=== PATIENT | female | born 1985 | race American Indian/Alaskan Native ===

== ENCOUNTER 2018-05-26 20:53 | Inpatient (IN) | payer MEDICAID ==
--- NOTE | 2018-05-26 22:19 | Emergency Department Report ---
ED Headache HPI - General Chief Complaint: Headache Stated Complaint: HIGH BP/HEADACHE/BLURRED VISION Source: patient, RN notes reviewed - History of Present Illness Initial Comments: Patient 32-year-old female history of -induced hypertension -induced diabetes or headache 3 days worsening bilateral lower sternum and shortness of breath. Symptoms exacerbated by activity is relieved by nothing patient right shortness of breath or 4/10 BP max 189/94 pt not currently on BP meds, Timing/Duration: other Quality: moderate Head Injury Location: frontal Recent Head Trauma: other ( 1 week ) Associated Symptoms: fatigue, nasal congestion, other (bilat le edema , sob ) Allergies/Adverse Reactions: Allergies No Known Allergies Allergy (Unverified 05/26/18 22:03) ED Review of Systems ROS: Stated complaint: HIGH BP/HEADACHE/BLURRED VISION Other details as noted in HPI Constitutional: malaise. denies: chills, fever Eyes: vision change (blurred vision). denies: eye pain, eye discharge ENT: denies: ear pain, throat pain Respiratory: shortness of breath. denies: cough, wheezing Cardiovascular: dyspnea on exertion, orthopnea, edema, paroxysmal nocturnal dyspnea. denies: chest pain, palpitations Endocrine: no symptoms reported Gastrointestinal: denies: abdominal pain, nausea, diarrhea Genitourinary: denies: urgency, dysuria, discharge Musculoskeletal: back pain, myalgia Skin: denies: rash, lesions Neurological: denies: headache, weakness, paresthesias Psychiatric: denies: anxiety, depression Hematological/Lymphatic: denies: easy bleeding, easy bruising ED Past Medical Hx - Past Medical History Hx Headaches / Migraines: Yes Additional medical history: delivered 3rd child on 05/21/18 - Social History Smoking Status: Never Smoker ED Physical Exam - General Limitations: No Limitations General appearance: alert, in no apparent distress - Head Head exam: Present: atraumatic, normocephalic - Eye Eye exam: Present: normal appearance, PERRL Pupils: Present: normal accommodation - ENT ENT exam: Present: mucous membranes moist - Neck Neck exam: Present: normal inspection, full ROM. Absent: tenderness, meningismus, lymphadenopathy, thyromegaly - Respiratory Respiratory exam: Present: normal lung sounds bilaterally. Absent: respiratory distress, wheezes, stridor, chest wall tenderness - Cardiovascular Cardiovascular Exam: Present: regular rate, normal rhythm, normal heart sounds. Absent: systolic murmur, diastolic murmur, rubs, gallop - GI/Abdominal GI/Abdominal exam: Present: soft, normal bowel sounds. Absent: tenderness, bruit, hernia - Rectal Rectal exam: Present: deferred - Extremities Exam Extremities exam: Present: full ROM, tenderness (generalized aches), normal capillary refill, pedal edema. Absent: calf tenderness - Back Exam Back exam: Present: normal inspection, full ROM. Absent: CVA tenderness (R), CVA tenderness (L), paraspinal tenderness, vertebral tenderness - Neurological Exam Neurological exam: Present: alert, oriented X3, CN II-XII intact, normal gait, reflexes normal - Psychiatric Psychiatric exam: Present: normal affect, normal mood - Skin Skin exam: Present: warm, dry, intact, normal color. Absent: rash ED Course Vital Signs 05/26/18 21:07 Temperature 99.1 F Pulse Rate 65 Respiratory 18 Rate Blood Pressure 149/68 O2 Sat by Pulse 96 Oximetry ED Medical Decision Making - Lab Data Result diagrams: 05/26/18 22:07 05/26/18 22:07 Laboratory Tests 05/26/18 05/26/18 05/26/18 22:07 22:07 22:07 WBC 8.0 RBC 3.63 L Hgb 9.7 L Hct 29.3 L MCV 81 MCH 27 L MCHC 33 RDW 18.4 H Plt Count 201 Lymph % (Auto) 26.2 [place] % (Auto) 7.1 Eos % (Auto) 1.8 Baso % (Auto) 0.2 Lymph # 2.1 [place] # 0.6 Eos # 0.1 Baso # 0.0 Seg Neutrophils % 64.7 Seg Neutrophils # 5.2 PT 13.1 INR 0.94 APTT 29.2 Sodium 140 Potassium 4.1 Chloride 106.0 Carbon Dioxide 25 Anion Gap 13 BUN 16 Creatinine 0.6 L Estimated GFR > 60 BUN/Creatinine Ratio 27 Glucose 93 Calcium 8.5 Total Bilirubin 0.20 AST 37 ALT 54 Alkaline Phosphatase 143 H Lactate Dehydrogenase 329 H NT-Pro-B Natriuret Pep 455.2 H Total Protein 6.1 L Albumin 3.1 L Albumin/Globulin Ratio 1.0 Urine Color Urine Turbidity Urine pH Ur Specific [place] Urine Protein Urine Glucose (UA) Urine Ketones Urine Blood Urine Nitrite Urine Bilirubin Urine Urobilinogen Ur Leukocyte Esterase Urine WBC (Auto) Urine RBC (Auto) U Epithel Cells (Auto) Urine Bacteria (Auto) Urine Mucus 05/26/18 22:14 WBC RBC Hgb Hct MCV MCH MCHC RDW Plt Count Lymph % (Auto) [place] % (Auto) Eos % (Auto) Baso % (Auto) Lymph # [place] # Eos # Baso # Seg Neutrophils % Seg Neutrophils # PT INR APTT Sodium Potassium Chloride Carbon Dioxide Anion Gap BUN Creatinine Estimated GFR BUN/Creatinine Ratio Glucose Calcium Total Bilirubin AST ALT Alkaline Phosphatase Lactate Dehydrogenase NT-Pro-B Natriuret Pep Total Protein Albumin Albumin/Globulin Ratio Urine Color Yellow Urine Turbidity Clear Urine pH 6.0 Ur Specific [place] 1.016 Urine Protein <15 mg/dl Urine Glucose (UA) Neg Urine Ketones Neg Urine Blood Lg Urine Nitrite Neg Urine Bilirubin Neg Urine Urobilinogen < 2.0 Ur Leukocyte Esterase Lg Urine WBC (Auto) 10.0 H Urine RBC (Auto) 24.0 U Epithel Cells (Auto) 1.0 Urine Bacteria (Auto) 1+ Urine Mucus Few - Medical Decision Making plan admit to OBGYN dx: preeclampsia labs cxr pending, consulted OBGYN Dr. Mak/ [employer] Thao plan Admit to Dx preeclampsia, OBGYN will initiate admission orders discussed tx plan with patient pt verbalized agreement and understanding with same, ED consult/attending Dr. Rocha. Critical care attestation.: If time is entered above; I have spent that time in minutes in the direct care of this critically ill patient, excluding procedure time. ED Disposition Clinical Impression: Preeclampsia Qualifiers: Trimester: second trimester Qualified Code(s): O14.92 - Unspecified pre- eclampsia, second trimester Headache Qualifiers: Headache type: unspecified Headache chronicity pattern: acute headache Intractability: not intractable Qualified Code(s): R51 - Headache Disposition: OP ADMIT IP TO THIS HOSP Is pt being admited?: Yes Does the pt Need Aspirin: No Condition: Stable Time of Disposition: 22:30
[2018-05-26 22:29] LABS: Basophils % (Auto) 0.2 % (0.0-1.8); Eosinophils # (Auto) 0.1 K/mm3 (0.0-0.4); Eosinophils % (Auto) 1.8 % (0.0-4.3); Hematocrit 29.3 % (30.3-42.9); Hemoglobin 9.7 gm/dl (10.1-14.3); Lymphocytes # (Auto) 2.1 K/mm3 (1.2-5.4); Lymphocytes % (Auto) 26.2 % (13.4-35.0); Mean Corpuscular HGB Conc 33 % (30-34); Mean Corpuscular Hemoglobin 27 pg (28-32); Mean Corpuscular Volume 81 fl (79-97); Monocytes # (Auto) 0.6 K/mm3 (0.0-0.8); Monocytes % (Auto) 7.1 % (0.0-7.3); Platelet Count 201 K/mm3 (140-440); Red Blood Count 3.63 M/mm3 (3.65-5.03); Red Cell Distribution Width 18.4 % (13.2-15.2)
[2018-05-26 22:39] LABS: Bacteria,Urine 1+ /HPF (Negative); Bilirubin,Urine NEG (Negative); Blood,Urine LG (Negative); Color,Urine Yellow (Yellow); Mucus,Urine FEW /HPF; Protein,Urine <15 mg/dL mg/dL (Negative); Urobilinogen,Urine < 2.0 mg/dL (<2.0)
[2018-05-26 22:51] LABS: INR 0.94 (0.87-1.13)
[2018-05-26 22:52] LABS: Partial Thromboplastin Time 29.2 Sec. (24.2-36.6)
[2018-05-26 22:57] LABS: Alanine Aminotransferase 54 units/L (7-56); Albumin 3.1 g/dL (3.9-5); BUN/Creatinine Ratio 27; Blood Urea Nitrogen 16 mg/dL (7-17); Calcium 8.5 mg/dL (8.4-10.2); Hemolysis Index 2
[2018-05-26] MEDS ORDERED: LACTATED RINGERS 1,000 ML IV SCH (23:03)
[2018-05-26] MEDS ORDERED: MAGNESIUM SULFATE 4GM/100ML 4 GM/100 ML BAG IV ONE (23:03)
--- NOTE | 2018-05-26 23:05 | XRay Report ---
FINAL REPORT PROCEDURE: XR CHEST ROUTINE 2V TECHNIQUE: PA and lateral chest radiographs were obtained. CPT 41358 HISTORY: sob COMPARISON: No prior studies are available for comparison. FINDINGS: Heart: Normal. Mediastinum/Vessels: Normal. Lungs/Pleural space: Normal. Bony thorax: No acute osseous abnormality. Other: IMPRESSION: Normal examination.
[2018-05-26 23:09] LABS: Bilirubin,Direct < 0.2 mg/dL (0-0.2)
[2018-05-27] MEDS: NORMODYNE PO SCH ×3 (00:25→21:59)
[2018-05-27] MEDS: MAGNESIUM SULFATE 40GM/1000ML 40 GM/1,000 ML BAG IV SCH ×2 (01:05→19:45)
--- NOTE | 2018-05-27 05:28 | History and Physical Report ---
<AYDEN GONZALEZ - Last Filed: 05/27/18 05:20> History of Present Illness Date of examination: 05/27/18 Date of admission: 05/26/18 22:15 Chief complaint: headache and edema 1 week after delivery History of present illness: Patient 32-year-old female history of -induced hypertension - induced diabetes or headache 3 days worsening bilateral lower edema and shortness of breath. Symptoms exacerbated by activity is relieved by nothing patient right shortness of breath or 4/10 BP max 189/94. Pt delivered at [facility] last week, vaginally. pt was discharged home w/o BP meds, No Known Allergies Allergy Past History - Obstetrical History : 4 Para: 3 Hx # Term Pregnancies: 3 Spontaneous Abortions: 1 Number of Living Children: 3 Medications and Allergies Allergies Allergy/AdvReac Type Severity Reaction Status Date / Time No Known Allergies Allergy Unverified 05/26/18 22:03 Active Meds: Active Medications Lactated Ringer's (Lactated Ringers) 1,000 mls @ 125 mls/hr IV DIRECT LEVAR Magnesium Sulfate (Magnesium Sulfate 40gm/1000ml) 40 gm in 1,000 mls @ 50 mls/ hr IV DIRECT LEVAR Labetalol HCl (Normodyne) 200 mg PO BID LEVAR Review of Systems All systems: negative Constitutional: other (generalized edema) Neurological: headaches (frontal, x 3 days) - Vital Signs Vital signs: Vital Signs Temp Pulse Resp BP Pulse Ox 99.1 F 65 18 149/68 96 05/26/18 21:07 05/26/18 21:07 05/26/18 21:07 05/26/18 21:07 05/26/18 21:07 Temp Pulse Resp BP Pulse Ox 99.1 F 65 18 149/68 96 05/26/18 21:07 05/26/18 21:07 05/26/18 21:07 05/26/18 21:07 05/26/18 21:07 Results Result Diagrams: 05/26/18 22:07 05/26/18 22:07 Abnormal lab results 05/26/18 05/26/18 05/26/18 Range/Units 22:07 22:07 22:14 RBC 3.63 L (3.65-5.03) M/mm3 Hgb 9.7 L (10.1-14.3) gm/dl Hct 29.3 L (30.3-42.9) % MCH 27 L (28-32) pg RDW 18.4 H (13.2-15.2) % Creatinine 0.6 L (0.7-1.2) mg/dL Alkaline Phosphatase 143 H (35-129) units/L Lactate Dehydrogenase 329 H (91-180) units/L NT-Pro-B Natriuret Pep 455.2 H (0-450) pg/mL Total Protein 6.1 L (6.3-8.2) g/dL Albumin 3.1 L (3.9-5) g/dL Urine WBC (Auto) 10.0 H (0.0-6.0) /HPF All other labs normal. Assessment and Plan 32 y/o recently delivered woman admitted from ED for pre-e with severe symptoms. She del vaginally last week at [facility], that was complicated by GHTN and hyperglycemia. She denies receiving mag sulfate at any time during her admission to [facility]. Plan to admit for mag sulfate and b/p control. Admission orders in EMR - Patient Problems (1) Pre-eclampsia, Current Visit: Yes Status: Acute (2) Edema Current Visit: Yes Status: Acute Qualifiers: Edema type: generalized Qualified Code(s): R60.1 - Generalized edema (3) Headache Current Visit: Yes Status: Acute Qualifiers: Headache type: unspecified Headache chronicity pattern: acute headache Intractability: not intractable Qualified Code(s): R51 - Headache <LIDYA MCMILLAN - Last Filed: 05/27/18 06:20> History of Present Illness Date of admission: 05/26/18 22:15 Medications and Allergies Active Meds: Active Medications Lactated Ringer's (Lactated Ringers) 1,000 mls @ 125 mls/hr IV DIRECT LEVAR Magnesium Sulfate (Magnesium Sulfate 40gm/1000ml) 40 gm in 1,000 mls @ 50 mls/ hr IV DIRECT LEVAR Labetalol HCl (Normodyne) 200 mg PO BID LEVAR - Vital Signs Vital signs: Vital Signs Temp Pulse Resp BP Pulse Ox 99.1 F 65 18 149/68 96 05/26/18 21:07 05/26/18 21:07 05/26/18 21:07 05/26/18 21:07 05/26/18 21:07 Temp Pulse Resp BP Pulse Ox 98.7 F 76 18 155/84 96 05/26/18 23:30 05/27/18 00:30 05/27/18 02:00 05/27/18 02:00 05/26/18 21:07 - Physical Exam Breasts: Positive: normal Cardiovascular: Regular rate, Normal S1, Normal S2 Lungs: Positive: Clear to auscultation, Normal air movement, Other (pt states her chest feels heavy when she takes a deep breathe) Abdomen: Positive: normal appearance, soft, normal bowel sounds. Negative: distention, tenderness Vulva: both: normal Vagina: Positive: normal moisture. Negative: discharge Cervix: Negative: lesion, discharge Uterus: Positive: normal size, normal contour Adnexa: both: normal Anus/Rectum: Positive: normal perianal skin, heme negative. Negative: rectal mass, hemorrhoids Extremities: Positive: edema (KAILEE on) Deep Tendon Reflex Grade: Normal +2 Results Result Diagrams: 05/26/18 22:07 05/26/18 22:07 Abnormal lab results 05/26/18 05/26/18 05/26/18 Range/Units 22:07 22:07 22:14 RBC 3.63 L (3.65-5.03) M/mm3 Hgb 9.7 L (10.1-14.3) gm/dl Hct 29.3 L (30.3-42.9) % MCH 27 L (28-32) pg RDW 18.4 H (13.2-15.2) % Creatinine 0.6 L (0.7-1.2) mg/dL Magnesium (1.7-2.3) mg/dL Alkaline Phosphatase 143 H (35-129) units/L Lactate Dehydrogenase 329 H (91-180) units/L NT-Pro-B Natriuret Pep 455.2 H (0-450) pg/mL Total Protein 6.1 L (6.3-8.2) g/dL Albumin 3.1 L (3.9-5) g/dL Urine WBC (Auto) 10.0 H (0.0-6.0) /HPF 05/27/18 Range/Units 04:46 RBC (3.65-5.03) M/mm3 Hgb (10.1-14.3) gm/dl Hct (30.3-42.9) % MCH (28-32) pg RDW (13.2-15.2) % Creatinine (0.7-1.2) mg/dL Magnesium 3.80 H (1.7-2.3) mg/dL Alkaline Phosphatase (35-129) units/L Lactate Dehydrogenase (91-180) units/L NT-Pro-B Natriuret Pep (0-450) pg/mL Total Protein (6.3-8.2) g/dL Albumin (3.9-5) g/dL Urine WBC (Auto) (0.0-6.0) /HPF All other labs normal. Assessment and Plan Pt continues to c/o dull HIRSCH. Declines Tylenol @ this time. When asked to track with her eyes she still has some pain behind her eyes. KAILEE stephenson applied. Reviewed s/sx of PP PreE, treatments, and recovery. Pt is anxious about hospital stay and her children at home. Exp that best case scenario for d/c is tomorrow morning. She voiced understanding. All questions were addressed.
[2018-05-27 13:54] LABS: Hematocrit 31.1 % (30.3-42.9); Hemoglobin 10.1 gm/dl (10.1-14.3); Mean Corpuscular HGB Conc 32 % (30-34); Mean Corpuscular Volume 80 fl (79-97); Platelet Count 227 K/mm3 (140-440); Red Blood Count 3.89 M/mm3 (3.65-5.03); Red Cell Distribution Width 18.6 % (13.2-15.2)
[2018-05-27 13:55] LABS: Mean Corpuscular Hemoglobin 26 pg (28-32)
[2018-05-27 14:09] LABS: Uric Acid 5.2 mg/dL (3.5-7.6)
[2018-05-27] MEDS: TYLENOL PO PRN (22:00)
[2018-05-28] MEDS: TYLENOL PO PRN ×2 (03:38→10:34)
--- NOTE | 2018-05-28 08:20 | Progress Note ---
Assessment and Plan patient sleepin on left side, awoken for assessment. c/o worsening neck pain along with continued HIRSCH and blurred vision. b/p's 130-150's/60-80's on labetalol 200mg PO BID. Mag d/c'd after 24h. Dr. More consulted - order for CT of head w and w/o contrast ordered. Continue plan of care. - Patient Problems (1) Pre-eclampsia, Current Visit: Yes Status: Acute (2) Edema Current Visit: Yes Status: Acute Qualifiers: Edema type: generalized Qualified Code(s): R60.1 - Generalized edema (3) Headache Current Visit: Yes Status: Acute Qualifiers: Headache type: unspecified Headache chronicity pattern: acute headache Intractability: not intractable Qualified Code(s): R51 - Headache (4) Blurred vision, bilateral Current Visit: Yes Status: Acute (5) Neck pain Current Visit: Yes Status: Acute Subjective - Subjective Date of service: 05/28/18 Principal diagnosis: pre-e; Hirsch, neck pain and blurred vision Interval history: Patient 32-year-old female history of -induced hypertension - induced diabetes or headache 3 days worsening bilateral lower edema and shortness of breath. Symptoms exacerbated by activity is relieved by nothing patient right shortness of breath or 4/10 BP max 189/94. Pt delivered at [facility] last week, vaginally. pt was discharged home w/o BP meds, No Known Allergies Allergy Patient reports: appetite normal, voiding normally, ambulating normally, no dizzy ambulation, no nauseated Objective - Vital Signs Latest vital signs: Vital Signs Temp Pulse Resp BP BP Pulse Ox 05/28/18 03:46 98.9 F 73 20 148/81 98 05/28/18 03:38 20 05/28/18 00:20 98.3 F 74 18 134/71 05/27/18 22:00 20 05/27/18 21:59 68 150/74 05/27/18 20:32 98.6 F 70 20 153/71 100 05/27/18 19:50 66 20 139/66 05/27/18 16:00 138/74 05/27/18 14:00 65 139/72 05/27/18 12:00 98.6 F 63 20 145/62 05/27/18 10:00 63 147/77 144/77 05/27/18 08:39 98.4 F 65 20 151/78 Intake and Output 05/27/18 05/28/18 05/28/18 23:59 07:59 15:59 Intake Total 1173.333 360 Output Total 800 1200 Balance 373.333 -840 Intake: IV 933.333 MAGNESIUM SULFATE 40GM/ 933.333 1000ML 40 gm In 1,000 ml @ 2 GM/HR 50 mls/hr IV DIRECT LEVAR Rx#:[id number] Oral 240 360 Output: Urine 800 1200 Void 800 1200 Other: Total, Intake Amount 240 360 Total, Output Amount 800 1200 Voiding Method Toilet - Exam Breasts: Present: normal Cardiovascular: Present: Regular rate Lungs: Present: Clear to auscultation, Normal air movement Abdomen: Present: normal appearance, soft Uterus: Present: normal, firm, fundal height below umbilicus Extremities: Present: edema Deep Tendon Reflex Grade: Normal +2 - Labs Labs: Abnormal lab results 05/27/18 05/27/18 05/27/18 Range/Units 12:00 12:00 13:00 MCH 26 L (28-32) pg RDW 18.6 H (13.2-15.2) % Creatinine 0.6 L (0.7-1.2) mg/dL Magnesium 6.00 H (1.7-2.3) mg/dL Lactate Dehydrogenase 375 H (91-180) units/L 05/27/18 05/28/18 Range/Units 17:14 05:25 MCH (28-32) pg RDW (13.2-15.2) % Creatinine (0.7-1.2) mg/dL Magnesium 6.40 H 4.20 H (1.7-2.3) mg/dL Lactate Dehydrogenase (91-180) units/L
--- NOTE | 2018-05-28 09:12 | Event Note ---
Date: 05/28/18 Agree with MW exam and note. Will obtain CT of the head at this time and if normal will await optho consultation but will also obtain anesthesia consult for possible spinal headache.
--- NOTE | 2018-05-28 09:13 | Cat Scan Report ---
CT HEAD WITHOUT CONTRAST: HISTORY: Head pain in patient. TECHNIQUE: Sequential 2.5mm CT images. COMPARISON: none. FINDINGS: Cerebral Parenchyma: Within normal limits. Cerebellum: Within normal limits. Brainstem: Within normal limits. Ventricles: Normal. Sella: Normal. Extra-axial spaces: Normal. Basal Cisterns: Normal. Intracranial Hemorrhage: None. Midline Shift: None. Calvarium: Normal. Sinuses: Normal. Mastoid Air Cells: Normal. Visualized Orbits: Normal. IMPRESSION: Cranial CT scan within normal limits.
--- NOTE | 2018-05-28 10:16 | Event Note ---
Date: 05/28/[address] normal. Patient states she did not have an epidural during her labor so spinal HIRSCH is ruled out. Will continue with current plan awaiting ophthalmology consult.
[2018-05-28] MEDS: NORMODYNE PO SCH (10:28)
[2018-05-28 11:58] VITALS: BP 147/76
--- NOTE | 2018-05-28 13:15 | Discharge Summary ---
Providers - Providers Date of Admission: 05/26/18 22:15 Date of discharge: 05/28/18 Attending physician: SILVIA HAIR MD 05/27/18 16:53 Consult to Physician [CONS] Routine Comment: Consulting Provider: ANTONIETTA FRANCIS Physician Instructions: Reason For Exam: pre-eclampsia/blurred vision Primary care physician: ELMER CHAN MD Hospitalization Reason for admission: other (headache, elevated blood pressures) Hospital course: Pt advised that ct scan was wnl. she states the headache and blurry vision have improved since being off the magnesium and that she is feeling much better. She states she has spoken to her Ob office and has an apt for next week. Pt given strict PIH precautions and was advised to return to ER should she have any worsening sx. She was advised that ct scan with contract was ordered also but she refused to have contrast. She desires d/c home and f/u of bps as an out pt. I advised that the opthalmologist was to see her as well but has not seen her at this time. Pt expressed understanding stating she desires d/c home. She was advised not to drive until she has a proper eye exam. She will be given the provider's number to call should she have any quetions or problems. Condition at discharge: Good Disposition: DC-01 TO HOME OR SELFCARE Plan - Discharge Medications Prescriptions: Labetalol [Normodyne TAB] 200 mg PO BID #60 tablet - Provider Discharge Summary Additional instructions: [] Smoking cessation referral if applicable(refer to patient education folder for contact #) [] Refer to [facility]'s [facility] Booklet Call your doctor immediately for: * Fever > 100.5 * Heavy vaginal bleeding ( >1 pad per hour) * Severe persistent headache * Shortness of breath * Reddened, hot, painful area to leg or breast * Drainage or odor from incision. * Keep incision clean and dry at all times and follow doctor's instructions regarding bathing/showering - Follow up plan Follow up: PRIMARY MD ROCIO [Primary Care Provider] - 3-5 Days Forms: [facility] Discharge Summary
== END 2018-05-28 13:30 | disposition home or self-care (01) | DRG 776 ==
LOC: ED 20:53 → OB 22:15
PROVIDERS: ADMIT Emergency Medicine; ATTEND Emergency Medicine
DX: O14.95 Unspecified pre-eclampsia, complicating the puerperium (principal); O90.89 Other complications of the puerperium, not elsewhere classified; R51 Headache; O12.05 Gestational edema, complicating the puerperium; H53.9 Unspecified visual disturbance; M54.2 Cervicalgia
CPT/HCPCS: 36415; 70450; 71046; 80053; 80074; 81001; 82565; 83615; 83735; 83880; 84550; 85025; 85027; 85610; 85730; J3475; J7120